=== PATIENT | female | born 1965 | race Caucasian/White ===

== ENCOUNTER 2017-05-09 17:40 | Emergency (ER) | payer OTHER ==
[~2017-05-09 17:40] MED LIST: ARMOUR THYROID60 MG PO; BACLOFEN10 MG PO; FAMVIR500 MG PO; GLUCOTROL10 MG PO; IBUPROFEN200 MG PO; LANTUS100 UNIT/1 SC; LASIX40 MG PO; METFORMIN HCL500 MG PO; NORCO 5-325 TA1 EACH PO; PROZAC40 MG PO
== END 2017-05-09 21:32 | disposition home or self-care (01) ==
LOC: FER 17:40
DX: I82.812 Embolism and thrombosis of superficial veins of left lower extremity (principal); L03.116 Cellulitis of left lower limb; E11.9 Type 2 diabetes mellitus without complications; Z88.5 Allergy status to narcotic agent; Z98.890 Other specified postprocedural states; Z79.84 Long term (current) use of oral hypoglycemic drugs
CPT/HCPCS: 93971

== ENCOUNTER → 2021-02-23 | Day surgery (SDC) | payer OTHER ==
[~2021-02-23] MED LIST changes: +CELECOXIB200 MG PO; +DULOXETINE HCL30 MG PO; +GABAPENTIN300 MG PO; +LEXAPRO20 MG PO; +LIDOCAINE30 G1 TOP; +MEDROL 4MG DOSEP4 MG PO; +MELOXICAM15 MG PO; +NEURONTIN100 MG PO; +OXYCODONE-ACET1 EACH PO; +PERCOCET 10-321 EACH PO; +PREMARIN0.3 MG PO; +PRINIVIL10 MG PO; +PROTONIX40 M1 PO; +SYNTHROID50 MCG PO
[2021-02-23 10:16] LABS: HCT 39.3 % (37.0-47.0); HGB 12.9 g/dl (12.5-16.0); MCH 32.5 pg (25.0-31.0); MCHC 32.8 g/dL (32.0-36.0); MPV 10.5 fL (6.0-9.5); RBC 3.97 M/uL (4.20-5.40); RDW 14.2 % (11.5-14.0); WBC 7.5 K/uL (4.0-10.5)
[2021-02-23 10:36] LABS: ALBUMIN 3.6 g/dL (3.4-5.0); BILIRUBIN - TOTAL 0.5 mg/dL (0.2-1.0); BUN/CREAT RATIO (CALC) 20.2 RATIO; CREATININE 1.14 mg/dL (0.51-0.95); GLOBULIN (CALCULATION) 3.9 g/dL; POTASSIUM 3.8 mmol/L (3.5-5.1); TOTAL PROTEIN 7.5 g/dL (6.4-8.2)
== END | disposition home or self-care (01) ==
LOC: FAS 09:35
PROVIDERS: Surgery
DX: Z12.11 Encounter for screening for malignant neoplasm of colon (principal); F41.9 Anxiety disorder, unspecified; F32.9 Major depressive disorder, single episode, unspecified; M19.90 Unspecified osteoarthritis, unspecified site; I10 Essential (primary) hypertension; G47.30 Sleep apnea, unspecified; E03.9 Hypothyroidism, unspecified; E11.9 Type 2 diabetes mellitus without complications; Z87.891 Personal history of nicotine dependence; Z83.71 Family history of colonic polyps; Z99.89 Dependence on other enabling machines and devices; Z79.84 Long term (current) use of oral hypoglycemic drugs; Z79.899 Other long term (current) drug therapy
CPT/HCPCS: 36415; 80053; J2250; J2704; J7120

== ENCOUNTER 2021-04-29 16:20 | Emergency (ER) | payer OTHER ==
[~2021-04-29 16:20] MED LIST changes: -GABAPENTIN300 MG PO; -MEDROL 4MG DOSEP4 MG PO
[2021-04-29 17:33] LABS: BASOPHIL 0.4 % (0-2); EOSINOPHIL 0.6 % (0-5); HCT 34.2 % (37.0-47.0); HGB 11.6 g/dl (12.5-16.0); LYMPHOCYTE 17.1 % (15-48); MCHC 33.9 g/dL (32.0-36.0); MCV 97.4 fL (78.0-100.0); MONOCYTE 3.5 % (0-12); MPV 9.8 fL (6.0-9.5); NEUTROPHIL 77.8 % (41-80); NRBC 0; PLT 301 K/uL (150-400); RBC 3.51 M/uL (4.20-5.40); RDW 13.7 % (11.5-14.0); WBC 14.2 K/uL (4.0-10.5)
[2021-04-29 17:41] LABS: BILIRUBIN NEGATIVE (NEGATIVE); BLOOD 1+ Ery/uL (NEGATIVE); CLARITY CLEAR (CLEAR); COLOR YELLOW (YELLOW); GLUCOSE (U) NORMAL (NORMAL); LEUKOCYTES NEGATIVE Leu/uL (NEGATIVE); NITRITE NEGATIVE (NEGATIVE); PROTEIN TRACE (LOW) mg/dL (NEGATIVE); UROBILINOGEN 0.2 mg/dL (0.2-1.0); pH 5.5 (5.0-9.0)
[2021-04-29 17:51] LABS: BACTERIA 2+; URINARY RBC RARE
[2021-04-29 18:05] LABS: ALBUMIN 3.3 g/dL (3.4-5.0); BILIRUBIN - TOTAL 0.3 mg/dL (0.2-1.0); CREATININE 10.02 mg/dL (0.51-0.95); GLOBULIN (CALCULATION) 4.2 g/dL; POTASSIUM 4.9 mmol/L (3.5-5.1); TOTAL PROTEIN 7.5 g/dL (6.4-8.2)
[2021-04-29 18:24] LABS: LACTIC ACID 1.1 mmol/L (0.4-1.9)
[2021-04-29 21:00] LABS: CREATININE 9.22 mg/dL (0.51-0.95); POTASSIUM 4.2 mmol/L (3.5-5.1)
[2021-05-16] MEDS ORDERED: NEURONTIN100 MG PO (16:29)
[2021-05-16] MEDS ORDERED: OXYCODONE-ACET1 EACH PO (16:44)
== END 2021-04-30 01:15 | disposition other institution (70) ==
LOC: FER 16:20
PROVIDERS: Nurse Practitioner Family
DX: N17.9 Acute kidney failure, unspecified (principal); R19.7 Diarrhea, unspecified; E86.0 Dehydration; E11.9 Type 2 diabetes mellitus without complications; I10 Essential (primary) hypertension; Z98.890 Other specified postprocedural states; Z90.49 Acquired absence of other specified parts of digestive tract; Z88.6 Allergy status to analgesic agent; Z87.891 Personal history of nicotine dependence; Z20.822 Contact with and (suspected) exposure to COVID-19
CPT/HCPCS: 36415; 71045; 80048; 80053; 81001; 83605; 85025; 87040; 87088; J0696; J7030; U0002

== ENCOUNTER 2021-08-24 17:14 | Emergency (ER) | payer OTHER ==
[~2021-08-24] VITALS: Ht 160 cm; Wt 92.1 kg
[~2021-08-24 17:14] MED LIST changes: +GABAPENTIN300 MG PO
[2021-08-24] MEDS ORDERED: MEDROL 4MG DOSEP4 MG PO (19:20)
== END 2021-08-24 19:37 | disposition home or self-care (01) ==
LOC: FER 17:14
DX: M79.605 Pain in left leg (principal); E11.40 Type 2 diabetes mellitus with diabetic neuropathy, unspecified; I10 Essential (primary) hypertension; Z88.5 Allergy status to narcotic agent
CPT/HCPCS: 93971; J1100

== ENCOUNTER 2022-05-30 12:27 | Emergency (ER) | payer OTHER ==
[~2022-05-30 12:27] MED LIST changes: +MEDROL 4MG DOSEP4 MG PO; +NEURONTIN300 MG PO
[2022-05-30] MEDS ORDERED: MEDROL 4MG DOSEP4 MG PO (16:49)
== END 2022-05-30 17:04 | disposition home or self-care (01) ==
LOC: FER 12:27
DX: M10.9 Gout, unspecified (principal); E11.9 Type 2 diabetes mellitus without complications; Z88.5 Allergy status to narcotic agent
CPT/HCPCS: 36415; 73660; 84550

== ENCOUNTER 2022-08-19 10:31 | Emergency (ER) | payer OTHER ==
[~2022-08-19 10:31] MED LIST changes: +GABAPENTIN600 MG PO
[2022-08-24] MEDS ORDERED: GABAPENTIN300 MG PO (13:07)
[2022-08-24] MEDS ORDERED: OXYCODONE-ACET1 EACH PO (14:34)
[2022-08-24] MEDS ORDERED: PERCOCET 10-321 EACH PO (14:34)
== END 2022-08-19 13:27 | disposition home or self-care (01) ==
LOC: FER 10:31
DX: S93.402A Sprain of unspecified ligament of left ankle, initial encounter (principal); E11.9 Type 2 diabetes mellitus without complications; E03.9 Hypothyroidism, unspecified; K21.9 Gastro-esophageal reflux disease without esophagitis; Z88.5 Allergy status to narcotic agent; Z79.899 Other long term (current) drug therapy; W22.8XXA Striking against or struck by other objects, initial encounter; Y92.89 Other specified places as the place of occurrence of the external cause
CPT/HCPCS: 73610; 73630; J1170

== ENCOUNTER 2022-08-21 12:30 | Emergency (ER) | payer OTHER ==
[2022-08-21 14:01] LABS: BASOPHIL 0.7 % (0-2); EOSINOPHIL 3.2 % (0-5); HCT 32.5 % (37.0-47.0); HGB 10.7 g/dl (12.5-16.0); LYMPHOCYTE 24.1 % (15-48); MCH 31.8 pg (25.0-31.0); MCHC 32.9 g/dL (32.0-36.0); MCV 96.7 fL (78.0-100.0); MONOCYTE 6.1 % (0-12); MPV 10.8 fL (6.0-9.5); NEUTROPHIL 65.2 % (41-80); NRBC 0; PLT 159 K/uL (150-400); RBC 3.36 M/uL (4.20-5.40); WBC 7.5 K/uL (4.0-10.5)
[2022-08-21 14:23] LABS: BUN/CREAT RATIO (CALC) 18.3 RATIO; CREATININE 1.15 mg/dL (0.51-0.95); POTASSIUM 4.6 mmol/L (3.5-5.1)
[2022-08-21] MEDS ORDERED: ELIQUIS5 MG PO (14:53)
[2022-08-24] MEDS ORDERED: GABAPENTIN300 MG PO (13:07)
[2022-08-24] MEDS ORDERED: PERCOCET 10-321 EACH PO (14:34)
[2022-08-24] MEDS ORDERED: OXYCODONE-ACET1 EACH PO (14:34)
== END 2022-08-21 15:18 | disposition home or self-care (01) ==
LOC: FER 12:30
PROVIDERS: Nurse Practitioner Family
DX: I82.402 Acute embolism and thrombosis of unspecified deep veins of left lower extremity (principal); I10 Essential (primary) hypertension; Z88.5 Allergy status to narcotic agent; Z28.311 Partially vaccinated for COVID-19
CPT/HCPCS: 36415; 80048; 85025